=== PATIENT | male | born 1990 | race African-American/Black ===

== ENCOUNTER 2020-12-02 08:23 | Emergency (ER) | payer OTHER ==
[~2020-12-02] VITALS: Ht 172.7 cm; Wt 95.3 kg
[2020-12-02 08:30] VITALS: BP 139/100
[2020-12-02] MEDS ORDERED: FLEXERIL PO (09:49)
[2020-12-02] MEDS ORDERED: IBUPROFEN 800800 M1 PO (09:49)
[2020-12-02] MEDS ORDERED: HYDROCODON-ACE1 EAC7 PO (09:55)
== END 2020-12-02 10:09 | disposition home or self-care (01) ==
LOC: M.ERS 08:23
DX: M54.5 Low back pain (principal); Y04.0XXA Assault by unarmed brawl or fight, initial encounter; Y93.89 Activity, other specified; Y92.89 Other specified places as the place of occurrence of the external cause; Y99.9 Unspecified external cause status